=== PATIENT | female | born 1995 | race Asian ===

== ENCOUNTER 2019-02-11 02:17 | Emergency (ER) | payer OTHER ==
[~2019-02-11] VITALS: Ht 160 cm; Wt 94.2 kg
[~2019-02-11 02:17] MED LIST: MEDR10TA2 PO
[2019-02-11 02:24] VITALS: Ht 160 cm; Wt 94.2 kg
[2019-02-11] MEDS ORDERED: KETOROLAC 30 MG INJ IV STA (03:00)
[2019-02-11] MEDS ORDERED: SOD CHLORIDE 0.9% 1,000 ML IV STA (03:00)
[2019-02-11] MEDS ORDERED: MEDROXYPROGESTERONE 10 MG TAB PO ONE (04:30)
[2019-02-11 05:52] VITALS: BP 111/76; PULSE 76; RESP 18
== END 2019-02-11 05:53 | disposition home or self-care (01) ==
LOC: FTE 02:17
DX: N93.9 Abnormal uterine and vaginal bleeding, unspecified (principal)
CPT/HCPCS: 36415; 80053; 81001; 81025; 85025; 96361; 96374; J1885; J7030; Z7502; Z7610